=== PATIENT | female | born 1965 | race Caucasian/White ===

== ENCOUNTER 2018-08-29 10:48 | Outpatient (CLI) | payer BC ==
--- NOTE | 2018-08-29 13:37 | RAD ---
ABDOMEN TWO VIEWS: HISTORY: Abdominal pain. COMPARISON: None. FINDINGS: There appear to be abnormal air space opacities in both lower lobes bilaterally. A radio-opacity pro jects over the right mary-abdomen. On what is thought to be the upright view, there is gas in the left gastric fundus, without definite free intraperitoneal air. Surgical clips along the left mary-abdomen. IMPRESSION: 1. Possible intraluminal colonic radiopaque foreign object may be post-procedural in nature. 2. No definite free intraperitoneal gas. POS: [facility]
== END 2018-08-29 10:49 | disposition home or self-care (01) ==
LOC: RAD 10:48
PROVIDERS: ATTEND Internal Medicine Gastroenterology
DX: R10.9 Unspecified abdominal pain (principal)
CPT/HCPCS: 74019

== ENCOUNTER 2018-09-13 09:15 | Outpatient (CLI) | payer BC | END 2018-09-13 09:16 | disposition home or self-care (01) | LOC: BICMAMMO 09:15 | PROVIDERS: ATTEND Family Medicine | DX: Z12.31 Encounter for screening mammogram for malignant neoplasm of breast (principal); Z98.82 Breast implant status | CPT/HCPCS: 77063; 77067 ==

== ENCOUNTER 2018-09-14 08:14 | Outpatient (CLI) | payer BC ==
--- NOTE | 2018-09-14 10:54 | CT ---
CT OF THE ABDOMEN AND PELVIS WITH IV CONTRAST: INDICATION: History of radiopaque foreign body. COMPARISON: A 2-view abdomen dated 08/29/2018. FINDINGS: The previously seen radiopaque foreign body suspected within the colon is no longer demonstrated. Th e bowel gas pattern is unobstructed. There are surgical clips within the left adnexal which are stab le. There is a suspected 6 cm fibroid within the uterus. No free fluid is evident. The liver, panc reas, adrenal glands, kidneys, and spleen appear within normal limits. Scattered degenerative and osteoarthritic change is present. IMPRESSION: 1. Previously seen foreign body within the region of the splenic flexure is no longer demonstrated a nd likely has intervally passed. 2. Suspected fibroid uterus. POS: [facility]
[2018-09-14] MEDS ORDERED: ISOVUE-370 76%-LOCM 1 ML ONE (16:38)
== END 2018-09-14 08:15 | disposition home or self-care (01) ==
LOC: BICCT 08:14
PROVIDERS: ATTEND Family Medicine
DX: M79.5 Residual foreign body in soft tissue (principal)
CPT/HCPCS: 74177